=== PATIENT | female | born 1950 | race Caucasian/White ===

== ENCOUNTER 2022-05-18 05:31 | Emergency (ER) | payer MEDICARE, OTHER ==
[~2022-05-18] VITALS: Ht 160 cm; Wt 74.8 kg
[2022-05-18] MEDS ORDERED: ACETAMINOPHEN 325 MG TAB PO STA (06:12)
[2022-05-18] MEDS ORDERED: SODIUM CHLORIDE 0.9% 1000ML 1,000 ML IV STA (06:12)
[2022-05-18] MEDS ORDERED: SODIUM CHLORIDE 0.9% 1000ML 1,000 ML ONE (06:36)
[2022-05-18] MEDS ORDERED: PIPERACILLIN/TAZOBACTAM 3.375 GM VIAL ONE (06:36)
[2022-05-18] MEDS ORDERED: IBUPROFEN200 MG PO (06:42)
[2022-05-18] MEDS ORDERED: ACETAMINOPHEN500 MG PO (06:42)
[2022-05-18] MEDS ORDERED: TAMIFLU75 MG PO (06:42)
[2022-05-18 07:16] VITALS: BP 161/71
== END 2022-05-18 07:19 | disposition home or self-care (01) ==
LOC: FSED 05:54
DX: R50.9 Fever, unspecified (principal); J10.1 Influenza due to other identified influenza virus with other respiratory manifestations; R11.0 Nausea; R00.0 Tachycardia, unspecified; R30.0 Dysuria; Z20.822 Contact with and (suspected) exposure to COVID-19
CPT/HCPCS: 80053; 83605; 85025; 87040; 87400; 99283; J2543; J7030; U0002